=== PATIENT | female | born 1950 | race Caucasian/White ===

== ENCOUNTER → 2016-07-20 | Outpatient (CLI) | payer OTHER, BC ==
[~2016-07-20] MED LIST: CALC600T14 PO; DABI150C PO; LPR25 PO; SITA50TA3 PO
== END | disposition home or self-care (01) ==
LOC: C.PAPS 07:46
PROVIDERS: ATTEND Obstetrics & Gynecology
DX: Z12.4 Encounter for screening for malignant neoplasm of cervix (principal)

== ENCOUNTER → 2017-03-16 | Outpatient (CLI) | payer OTHER ==
--- NOTE | 2017-03-16 13:27 | DIAGNOSTIC IMAGING REPORT ---
KUB HISTORY: Acute left-sided abdominal pain with concern for nephrolithiasis N23 M54.5 COMPARISON: Abdominal ultrasound 01/21/2016 FINDINGS: The bowel gas pattern is non-obstructive. Moderate stool volume is noted involving the cecum, ascending colon and hepatic flexure. There is no organomegaly. No renal calculi. No ureteral calculi. Calcifications of the pelvis suggest phleboliths. No pneumoperitoneum or pneumatosis. No fracture. Multilevel degenerative changes of the thoracic and lumbar spine with dextroscoliosis of the thoracolumbar junction. IMPRESSION: 1. No renal or ureteral stones identified. 2. Moderate stool volume involves the cecum, ascending colon and hepatic flexure. 3. Nonobstructive bowel gas pattern. Electronically signed by: Augusto Arias M.D. 03/16/2017 1:25 PM Dictated Date/Time: 03/16/2017 1:21 PM
--- NOTE | 2017-03-16 13:47 | DIAGNOSTIC IMAGING REPORT ---
(RENAL)RETROPERITON COMP HISTORY: 66 years-old Female N23 M54.5 acute renal colic with acute low back pain. COMPARISON: KUB 03/16/2017, abdominal ultrasound 01/21/2016 TECHNIQUE: Multiple real-time sonographic images of the kidneys and urinary bladder were obtained assessing grayscale appearance and color flow FINDINGS: The right kidney measures 10.8 x 4.5 x 5.4 cm. There is mild fullness of the right renal pelvis which is likely physiologic without evidence of linda hydronephrosis. 4 mm nonshadowing echogenic focus is noted within the interpolar right kidney suggesting nonobstructing calculus. The left kidney measures 11.3 x 7.2 x 5.1 cm and demonstrates mild hydroureteronephrosis with minimal perinephric edema. There is an 8 mm calculus seen within the region of the distal left ureter near the ureterovesicular junction on image 29 of 52. Only the right ureteral jet identified. Urinary bladder is partially collapsed and otherwise unremarkable. IMPRESSION: 1. Mild left-sided hydroureteronephrosis and mild left perinephric edema with an 8 mm calculus seen within the region of the distal left ureter within the region of the ureterovesicular junction. The left ureteral jet is not identified. 2. Probable 4 mm nonobstructing calculus of the interpolar right kidney. No right-sided hydronephrosis. The above report was generated using voice recognition software. It may contain grammatical, syntax or spelling errors. Electronically signed by: Augusto Arias M.D. 03/16/2017 1:46 PM Dictated Date/Time: 03/16/2017 1:42 PM
== END | disposition home or self-care (01) ==
LOC: C.ULTRBC 13:06
PROVIDERS: ATTEND Family Medicine
DX: N23 Unspecified renal colic (principal); M54.5 Low back pain

== ENCOUNTER → 2017-07-06 | Outpatient (CLI) | payer OTHER ==
--- NOTE | 2017-07-06 22:14 | DIAGNOSTIC IMAGING REPORT ---
L LOWER EXT JOINT WITHOUT CLINICAL HISTORY: M25.562, LT KNEE WITHOUT CONTRAS TECHNIQUE: Multiaxial MRI acquisition COMPARISON STUDY: None FINDINGS: Signal characteristics the osseous structures are unremarkable. There is no significant bone marrow replacing process. There are findings of mild surrounding soft tissue edematous change. There is a small joint effusion. There are findings of moderate edematous change of the anterior cruciate ligament. Posterior cruciate ligament is intact. There is a small septated posterior popliteal cyst measuring approximately 3 x 1.5 cm. Evaluation of menisci demonstrates a tear of the posterior horn of the medial meniscus extending to the inferior meniscal surface. The lateral meniscus shows mild deterioration but no well-defined tear. Resolution is compromised due to patient body habitus as well as motion artifact. Collateral ligament structures are intact. The patellar retinaculum appears to be intact. IMPRESSION: 1. Somewhat limited exam due to patient body habitus and motion. 2. Generalized surrounding soft tissue edematous change. 3. Edema anterior cruciate ligament raising possibility of a partial tear. 4. Tear posterior horn medial meniscus extending to the inferior meniscal surface. 5. Mild degenerative changes of the articular services of all major joint compartments. 6. Small somewhat serpiginous popliteal cyst posterior to the knee measuring 3 x 1.5 cm. The above report was generated using voice recognition software. It may contain grammatical, syntax or spelling errors. Electronically signed by: aNsim Rodriguez M.D. 07/06/2017 10:13 PM Dictated Date/Time: 07/06/2017 10:06 PM
== END | disposition home or self-care (01) ==
LOC: C.MRI 20:33
PROVIDERS: ATTEND Family Medicine
DX: S83.242A Other tear of medial meniscus, current injury, left knee, initial encounter (principal); X58.XXXA Exposure to other specified factors, initial encounter